=== PATIENT | male | born 1955 | race Two or more races ===

== ENCOUNTER 2025-08-05 09:08 | Outpatient (CLI) | payer MEDICARE, OTHER ==
[2025-08-05 09:23] LABS: Estimated GFR - POC 60.0
[2025-08-05] MEDS ORDERED: Iopamidol 370 76% 100 ML VIAL ONE (14:38)
== END 2025-08-05 09:09 | disposition home or self-care (01) ==
LOC: CT 09:08
PROVIDERS: ATTEND Internal Medicine
DX: R31.0 Gross hematuria (principal); N40.0 Benign prostatic hyperplasia without lower urinary tract symptoms
CPT/HCPCS: 36415; 74178; 82565; Q9967